=== PATIENT | male | born 1940 | race Two or more races ===

== ENCOUNTER 2017-10-15 19:37 | Inpatient (IN) | payer OTHER ==
[~2017-10-15] VITALS: Ht 167.6 cm; Wt 79.4 kg
[~2017-10-15 19:37] MED LIST: ASA81 MG PO; ATENOLOL25 MG PO; INTESTINEX1 CA1 PO; METHYLPRED4 MG/DOSE- PO; PRINIVIL20 MG PO; PROMETHAZINE W118 ML PO; PROVENTIL3 ML/2.5 M IH; ULTRAM50 MG PO; VASOTEC10 MG NGT; ZITHROMAX500 MG PO
[2017-10-15] MEDS ORDERED: PLAVIX75 MG (19:49)
== END 2017-10-18 12:29 | disposition home or self-care (01) | DRG 390 ==
LOC: ER 19:37 → MEDI 10-16 17:46
DX: K56.690 Other partial intestinal obstruction (principal); I10 Essential (primary) hypertension

== ENCOUNTER 2019-01-17 08:16 | Outpatient (CLI) | payer OTHER ==
[~2019-01-17 08:16] MED LIST changes: +PLAVIX75 MG
== END 2019-01-17 08:19 | disposition home or self-care (01) ==
LOC: MRI 08:16
DX: R55 Syncope and collapse (principal); R41.2 Retrograde amnesia; G45.8 Other transient cerebral ischemic attacks and related syndromes
CPT/HCPCS: 70551

== ENCOUNTER 2019-01-23 14:07 | Emergency (ER) | payer OTHER ==
[~2019-01-23] VITALS: Ht 167.6 cm; Wt 79.4 kg
[2019-01-23] MEDS ORDERED: TOPROL XL25 MG PO (14:16)
[2019-01-23] MEDS ORDERED: MEDROL4 MG PO (14:18)
[2019-01-23] MEDS ORDERED: BACLOFEN10 MG PO (14:18)
[2019-01-23] MEDS ORDERED: TRAMADOL HCL50 MG PO (14:19)
== END 2019-01-23 16:03 | disposition home or self-care (01) ==
LOC: ER 14:07
DX: G44.209 Tension-type headache, unspecified, not intractable (principal)

== ENCOUNTER 2019-01-25 10:26 | Outpatient (CLI) | payer OTHER ==
[~2019-01-25 10:26] MED LIST changes: +BACLOFEN10 MG PO; +MEDROL4 MG PO; +TOPROL XL25 MG PO; +TRAMADOL HCL50 MG PO
== END 2019-01-25 17:01 | disposition home or self-care (01) ==
LOC: MRI 10:26
DX: M19.90 Unspecified osteoarthritis, unspecified site (principal); M54.2 Cervicalgia
CPT/HCPCS: 72141

== ENCOUNTER 2019-07-10 19:56 | Emergency (ER) | payer OTHER ==
[~2019-07-10] VITALS: Ht 167.6 cm; Wt 63.5 kg
[2019-07-10] MEDS ORDERED: BAYER THERAPY325 MG (20:20)
== END 2019-07-11 03:36 | disposition home or self-care (01) ==
LOC: ER 19:56
DX: I67.82 Cerebral ischemia (principal); I10 Essential (primary) hypertension; G83.14 Monoplegia of lower limb affecting left nondominant side; I69.898 Other sequelae of other cerebrovascular disease

== ENCOUNTER 2019-07-20 08:34 | Outpatient (CLI) | payer OTHER ==
[~2019-07-20 08:34] MED LIST changes: +BAYER THERAPY325 MG
== END 2019-07-20 11:50 | disposition home or self-care (01) ==
LOC: MRI 08:34
DX: M54.5 Low back pain (principal); M54.16 Radiculopathy, lumbar region
CPT/HCPCS: 72148